=== PATIENT | female | born 1970 | race Caucasian/White ===

== ENCOUNTER 2022-11-21 23:21 | Emergency (ER) | payer MEDICAID ==
[~2022-11-21] VITALS: Ht 151.1 cm; Wt 73.0 kg
[2022-11-21 23:42] VITALS: BP 144/87; O2SAT 98
[2022-11-22] MEDS ORDERED: ACETAMINOPHEN 325MG TABLET PO ONE (01:45)
[2022-11-22] MEDS ORDERED: CYCL10TA21 MT (01:52)
[2022-11-22] MEDS ORDERED: IBUP-2028 MT (01:52)
[2022-11-22 01:58] VITALS: PULSE 77; RESP 16; TEMP 98.5
== END 2022-11-22 06:17 | disposition home or self-care (01) ==
LOC: ER 23:21
DX: S09.90XA Unspecified injury of head, initial encounter (principal); Z98.890 Other specified postprocedural states; M54.2 Cervicalgia; V49.49XA Driver injured in collision with other motor vehicles in traffic accident, initial encounter; Y93.89 Activity, other specified; Y92.89 Other specified places as the place of occurrence of the external cause; Y99.8 Other external cause status
CPT/HCPCS: 99283